=== PATIENT | female | born 1990 | race Caucasian/White ===

== ENCOUNTER → 2021-10-03 15:10 | Outpatient (CLI) | payer BC, SELFPAY ==
--- NOTE | ~2021-10-03 | US_ITS ---
EXAMINATION: US OB transvaginal DATE: 10/03/2021 15:39 INDICATION: Gestational dating TECHNIQUE: Real-time transvaginal obstetric ultrasound. FINDINGS: Ultrasound dated 07/22/2018 The uterus measures 9.2 x 5.1 x 5.6 cm. There is an intrauterine gestational sac, with pole inessa ntified. The crown rump length measures 0.78 cm, which correlates with a estimated gestational age o f 6 weeks 5 days. heart tones are identified measuring 126 BPM. There is a small subchorionic hemorrhage measuring 1.4 x 1.9 x 0.4 cm. The right ovary is not visualized. The left ovary is normal . IMPRESSION: 1. SL IUP with an EGA of 6 weeks, 5 days (EDC by current ultrasound of 05/24/2022). 2: Small subchorionic hemorrhage. Reviewed, dictated and finalized at location B. IMPRESSION: 1. SL IUP with an EGA of 6 weeks, 5 days (EDC by current ultrasound of 05/24/19 23). 2: Small subchorionic hemorrhage.
== END ==
PROVIDERS: PCP Family Medicine; Visit Provider Advanced Practice Midwife
DX: O36.80X0 Pregnancy with inconclusive fetal viability, not applicable or unspecified (principal); Z3A.01 Less than 8 weeks gestation of pregnancy; O36.8911 Maternal care for other specified fetal problems, first trimester, fetus 1
CPT/HCPCS: 76817

== ENCOUNTER → 2021-10-29 14:11 | Outpatient (CLI) | payer BC, SELFPAY ==
--- NOTE | ~2021-10-29 | US_ITS ---
US OB limited 10/29/2021 14:34 Indication: Subchorionic hematoma Procedure: High-resolution Limited obstetrical ultrasound Comparison: Ultrasound dated 10/03/2021 Findings: Uterus measures 12.6 x 6.3 x 7.6 cm. There is a subchorionic hematoma measuring 2.3 x 1.2 x 2.2 cm. There is a single intrauterine with the yolk sac and heart rate of 178 BPM. Impression: 1: Single living intrauterine . 2: Small subchorionic hematoma. Reviewed, dictated and finalized at location A. Impression: 1: Single living intrauterine . 2: Small subchorionic hematoma.
== END ==
PROVIDERS: PCP Obstetrics & Gynecology Gynecology; Visit Provider Obstetrics & Gynecology Gynecology
DX: O36.8911 Maternal care for other specified fetal problems, first trimester, fetus 1 (principal)
CPT/HCPCS: 76815

== ENCOUNTER → 2021-11-25 10:54 | Outpatient (CLI) | payer BC, SELFPAY ==
--- NOTE | ~2021-11-25 | US_ITS ---
US OB limited 11/25/2021 11:13 Indication: Follow-up subchorionic hematoma Procedure: High-resolution Limited obstetrical ultrasound Comparison: Ultrasound dated 10/29/2021 Findings: There is a single living intrauterine in variable presentation. Placenta is poste rior measuring 2 cm to the cervix. There is a anechoic area along the anterior border of the placenta , likely venous morales. Amniotic fluid is subjectively normal. heart rate is 162 BPM. No evidence for subchorionic hematoma. Impression: 1: Single living intrauterine in variable presentation. 2: Interval resolution of subchorionic hematoma. Reviewed, dictated and finalized at location A. Impression: 1: Single living intrauterine in variable presentation. 2: Interval resolution of subchorionic hematoma.
== END ==
PROVIDERS: PCP Obstetrics & Gynecology Gynecology; Visit Provider Obstetrics & Gynecology Gynecology
DX: O36.8910 Maternal care for other specified fetal problems, first trimester, not applicable or unspecified (principal)
CPT/HCPCS: 76815

== ENCOUNTER → 2021-12-24 10:39 | Outpatient (CLI) | payer BC, SELFPAY ==
--- NOTE | ~2021-12-24 | US_ITS ---
US OB limited 12/24/2021 11:28 Indication: Low lying placenta Procedure: High-resolution Limited obstetrical ultrasound Comparison: 11/25/2021 Findings: There is a single living intrauterine in vertex presentation. Placenta is posteri or measuring 6.3 cm to the cervix. heart rate is 148 BPM. Impression: 1: Single living intrauterine in vertex presentation. 2: Posterior placenta measuring 6.3 cm to the cervix. Reviewed, dictated and finalized at location A. Impression: 1: Single living intrauterine in vertex presentation. 2: Posterior placenta measuring 6.3 cm to the cervix.
== END ==
PROVIDERS: PCP Family Medicine; Visit Provider Obstetrics & Gynecology Gynecology
DX: O44.42 Low lying placenta NOS or without hemorrhage, second trimester (principal); Z3A.17 17 weeks gestation of pregnancy
CPT/HCPCS: 76815

== ENCOUNTER 2022-03-29 08:52 | Emergency (ER) | payer BC, SELFPAY ==
[2022-03-29 09:18] VITALS: BP 106/84; PULSE 123; RESP 18; TEMP 36.2; O2SAT 100
--- NOTE | 2022-03-29 09:29 | ED.URI ---
HPI - URI/Sore Throat General Chief Complaint: Upper Respiratory Infection Stated Complaint: Sinus,Sore Throat,Cough Time Seen by Provider: 03/29/22 09:29 Source: patient Mode of arrival: ambulatory Limitations: no limitations History of Present Illness HPI Narrative: 31 year old female presents with complaint of sinus congestion, nasal congestion, postnasal drainage for 2-3 weeks. Patient is taking Tylenol And Sudafed as needed pain and congestion.. She is 32 weeks and was unsure what medication she could take for congestion. Reports 2 days ago she began to have pressure to both ears, increased sinus pressure. Afebrile. No cough, chest pain or shortness breath. All systems reviewed and negative except as noted above. Related Data Home Medications Medication Instructions Recorded Confirmed etonogestrel 68 mg subdermal 1 implant subdermal ONCE 06/03/20 06/03/20 implant (Nexplanon) Allergies Allergy/AdvReac Type Severity Reaction Status Date / Time No Known Allergies Allergy Unverified 06/03/20 15:53 Review of Systems Review of Systems: CONSTITUTIONAL: Denies fever, chills, or sweats. EYES: Denies visual changes, redness, or discharge. ENT: Reports rhinorrhea, congestion,, sinus pressure, ear pressure. Denies sore throat CARDIOVASCULAR: Denies chest pain, palpitations, or edema. RESPIRATORY: Denies cough or dyspnea. GASTROINTESTINAL: Denies abdominal pain, nausea, vomiting, or diarrhea. GENITOURINARY: Denies dysuria or hematuria. SKIN: Denies rash or itching. MUSCULOSKELETAL: Denies back pain, joint pain, or myalgia. NEUROLOGIC: Denies headache, numbness, or weakness. PSYCHIATRIC: Denies anxiety or depression. All other systems reviewed are negative, except as documented in HPI. [facility] Family History Family History Mother Diabetes mellitus Social History Social History Smoking status: Never smoker Second hand tobacco smoke exposure: No Alcohol intake: never Substance use: never Substance use type: does not use Gender identity (if verbalized by the patient): Female Sexual Orientation (if Verbalized by the Patient): Straight or Heterosexual Comments At time of signature, agree with nursing past medical, surgical, social and family history. There is no relevant family history pertinent to the presenting complaint. Exam Narrative: GENERAL: This is a well-nourished, well-developed patient, in no apparent distress. HEAD: normocephalic, atraumatic. EYES: PERRL. Sclera clear/white. Vision is grossly intact. EARS: External ears normal, auditory canals clear and without drainage, fluid to myeloma TMs without erythema. NOSE: External nose normal with Clear nasal drainage, erythema and swelling to both nares with moderate congestion. Bilateral maxillary sinus tenderness. THROAT: Mucous membranes moist, Mild erythema to posterior pharynx with clear postnasal drainage. NECK: Neck supple, non-tender without lymphadenopathy, masses or thyromegaly. CARDIOVASCULAR: Regular rate and rhythm without murmurs, gallops, or rubs. RESPIRATORY: Clear to auscultation. Breath sounds equal bilaterally. No wheezes, rales, or rhonchi. SKIN: warm, Dry, intact with no suspicious lesions or rash, good texture and turgor. NEURO: awake, alert, and oriented to person, place and time. There were no obvious focal neurologic abnormalities. EXTREMITIES: No joint tenderness, effusion, or edema noted. Course Course Level of Care: Express Care Visit Vital Signs Vital signs: Vital Signs Temperature 36.2 C L 03/29/22 09:18 Pulse Rate 123 H 03/29/22 09:18 Respiratory Rate 18 03/29/22 09:18 Blood Pressure 106/84 03/29/22 09:18 Pulse Oximetry 100 03/29/22 09:18 Oxygen Delivery Room Air 03/29/22 09:18 Temperature 36.2 C L 03/29/22 09:18 Pulse Rate 123 H 03/29/22 09:18 Respiratory
[2022-03-29 09:30] VITALS: PULSE 110; O2SAT 100
== END 2022-03-29 09:41 | disposition home or self-care (01) ==
PROVIDERS: Emergency Provider Nurse Practitioner Family; PCP Family Medicine
DX: O99.513 Diseases of the respiratory system complicating pregnancy, third trimester (principal); Z3A.32 32 weeks gestation of pregnancy; J01.90 Acute sinusitis, unspecified
CPT/HCPCS: 99213; G0463

== ENCOUNTER 2022-05-15 00:01 | Observation (INO) | payer BC, SELFPAY ==
[2022-05-15 00:28] VITALS: BMI 45.1
--- NOTE | 2022-05-15 00:28 | LDADM ---
This patient, Leigh Mendez, was admitted to OB Post 117 on 05/15/22 at 00:01. Plans for labor, pain management and were discussed with patient. Patient/family oriented to hospital policies and general routines including ID bracelet, bed and alarms, visiting hours, pain management, procedures, bathroom and other care routines, personal items, smoking policy, room service/diet and guest tray routines, infant security routines, and visiting hours. Patient/Family are encouraged to report perceived risks to care and to ask questions if they do not understand what they are told or what they should do. See OBIX for further documentation.
[2022-05-15 00:50] VITALS: BP 118/80; PULSE 98; RESP 16; TEMP 36.6
[2022-05-15 01:00] LABS: Add Urine Microscopic? YES; Appearance Urine Clear (Clear); Bilirubin Urine Negative (Negative); Blood Urine Negative (Negative); Color Urine Yellow (Yellow); Glucose Urine UA Negative (Negative); Ketones Urine Trace mg/dL (Negative); Leukocyte Esterase Ur Negative LEU/UL (Negative); Nitrate Urine Negative (Negative); Protein Urine Trace mg/dL (Negative); Specific Grav Ur >= 1.030 (1.001-1.035)
[2022-05-15 01:03] VITALS: BP 123/95; PULSE 97
[2022-05-15 01:09] LABS: Alanine Aminotransferase 16 U/L (6-35); Albumin Level 3.3 g/dL (3.5-5.1); Alkaline Phosphatase 171 U/L (38-126); Anion Gap 5 mmol/L (8-16); Aspartate Amino Transferase 19 U/L (14-36); Bilirubin,Total 0.5 mg/dL (0.2-1.3); Blood Urea Nitrogen 9 mg/dL (7-17); Calcium 8.7 mg/dL (8.4-10.2); Carbon Dioxide 23 mmol/L (22-30); Chloride 109 mmol/L (98-107); Estimated CRCL calculation 121 ml/min; Estimated Glomerular Filt Rate > 60; Glucose 97 mg/dL (65-110); Potassium 3.7 mmol/L (3.4-5.0); Sodium 137 mmol/L (137-145); Uric Acid 3.8 mg/dL (2.5-7.5)
[2022-05-15 01:13] LABS: Bacteria Urine Trace /hpf; Calcium Oxalate Crystals Urine Present /hpf; Mucus Urine Few /lpf; Squamous Epithelial Cell Urine Many /hpf (Few)
[2022-05-15 01:16] VITALS: BP 111/87; PULSE 102
--- NOTE | 2022-05-25 09:03 | P.PNOB_ITS ---
OB - Triage/Final Diagnosis Visit Information Reason for evaluation: threatened labor and other ( edema) Comments/Additional reasons for admission: I have assessed the risk for this patient, Leigh Mendez, and determined that she would benefit from observation care. Evaluation Laboratory results: Laboratory Tests 05/15/22 05/15/22 00:42 00:42 Sodium 137 Potassium 3.7 Chloride 109 H Carbon Dioxide 23 Anion Gap 5 L BUN 9 Creatinine 0.70 Estim Creat Clear Calc 121 Estimated GFR > 60 Glucose 97 Uric Acid 3.8 Calcium 8.7 Total Bilirubin 0.5 AST 19 ALT 16 Alkaline Phosphatase 171 H Total Protein 6.0 L Albumin 3.3 L Urine Color Yellow Urine Appearance Clear Urine pH 6.0 Ur Specific [place] >= 1.030 Urine Protein Trace Urine Glucose (UA) Negative Urine Ketones Trace Ur Blood (Man) Negative Urine Nitrate Negative Urine Bilirubin Negative Urine Urobilinogen 2.0 H Leukocyte Esterase Rfl Negative Urine RBC 3-5 H Urine WBC 4-6 H Ur Squamous Epith Cells Many H Calcium Oxalate Crystal Present Urine Bacteria Trace Urine Mucus Few H
== END 2022-05-15 01:42 | disposition home or self-care (01) ==
PROVIDERS: Admitting Provider Obstetrics & Gynecology Gynecology; PCP Family Medicine; Referring Provider Advanced Practice Midwife; Visit Provider Obstetrics & Gynecology Gynecology
DX: O47.1 False labor at or after 37 completed weeks of gestation (principal); O12.03 Gestational edema, third trimester; Z3A.38 38 weeks gestation of pregnancy
CPT/HCPCS: 36415; 80053; 81001; 84550; G0378; G0379

== ENCOUNTER 2022-05-17 16:55 | Inpatient (IN) | payer BC, SELFPAY ==
[2022-05-17] VITALS (12 sets, daily range): BP systolic 113–129; BP diastolic 60–101; PULSE 79–104; TEMP 36.2; BMI 45.1
--- NOTE | 2022-05-17 16:55 | LDADM ---
This patient, Leigh Mendez, was admitted to Labor/Delivery/Recovery 107 on 05/17/22 at 16:55. Plans for labor, pain management and were discussed with patient. Patient/family oriented to hospital policies and general routines including ID bracelet, bed and alarms, visiting hours, pain management, procedures, bathroom and other care routines, personal items, smoking policy, room service/diet and guest tray routines, security routines, and visiting hours. Patient/Family are encouraged to report perceived risks to care and to ask questions if they do not understand what they are told or what they should do. See OBIX for further documentation.
[2022-05-17] MEDS: DINOPROSTONE 10 MG VAG INSERT VAGINAL (18:37)
[2022-05-17 18:39] LABS: Basophils Percent Auto 0.4 % (0.2-1.2); Eosinophils Absolute Auto 0.1 K/mm3 (0-0.3); Eosinophils Percent Auto 0.6 % (0-4.4); Hematocrit 37.7 % (37.0-47.0); Hemoglobin 12.4 g/dL (12.0-15.0); Immature Granulocyte Absolute 0.08 K/mm3 (0.00-0.031); Immature Granulocyte Percent A 0.8 % (0-0.5); Lymphocytes Absolute Auto 1.71 K/mm3 (0.9-3.2); Lymphocytes Percent Auto 17.5 % (18.3-44.2); Mean Corpuscular HGB Conc 32.9 g/dl (32-36); Mean Corpuscular Volume 88.1 fl (80-100); Monocytes Absolute Auto 0.7 K/mm3 (0.1-0.6); Monocytes Percent Auto 7.3 % (2.6-8.5); Neutrophils Absolute Auto 7.2 K/mm3 (1.3-6.7); Neutrophils Percent Auto 73.4 % (45.5-73.1); Platelet Count Result 199 k/mm3 (150-375); Red Blood Count 4.28 M/mm3 (4.2-5.4); Red Cell Distribution Width 13.2 % (11.5-14.5); White Blood Count 9.8 K/mm3 (4.5-10.0)
--- NOTE | 2022-05-17 19:05 | WPDANESEPP ---
Anes - Eval Pre Procedure Procedure: Labor epidural Date/Time: 05/17/22 19:05 Surgeon: Bryant Preop Diagnosis: Abd pain with contractions Pre Op Diagnosis: Induction of Labor Patient Data Age: 31 Gender: F Height: 1.57 m Weight: 112 kg Last Vital Signs Pulse 91 05/17/22 19:01 BP 124/69 05/17/22 19:01 O2 Del Method Room Air 05/17/22 17:53 Allergies Allergy/AdvReac Type Severity Reaction Status Date / Time No Known Allergies Allergy Unverified 06/03/20 15:53 Home Medications Medication Instructions Recorded Confirmed Type cholecalciferol (vitamin D3) 125 50,000 unit PO WEEKLY 04/23/22 04/23/22 History mcg (5,000 unit) tablet (Vitamin D3) vit no.95-ferrous 1 tablet PO DAILY 05/17/22 05/17/22 History fumarate 28 mg-folic acid 800 mcg tablet () Laboratory Tests 05/17/22 05/17/22 17:21 17:21 WBC 9.8 K/mm3 K/mm3 (4.5-10.0) RBC 4.28 M/mm3 M/mm3 (4.2-5.4) Hgb 12.4 g/dL g/dL (12.0-15.0) Hct 37.7 % % (37.0-47.0) MCV 88.1 fl fl (80-100) MCH 29.0 pg pg (26-34) MCHC 32.9 g/dl g/dl (32-36) RDW 13.2 % % (11.5-14.5) Plt Count 199 k/mm3 k/mm3 (150-375) MPV 12.0 fl H fl (7.4-10.4) Immature Gran % (Auto) 0.8 % H % (0-0.5) Neut % (Auto) 73.4 % H % (45.5-73.1) Lymph % (Auto) 17.5 % L % (18.3-44.2) Camp % (Auto) 7.3 % % (2.6-8.5) Eos % (Auto) 0.6 % % (0-4.4) Baso % (Auto) 0.4 % % (0.2-1.2) Lymph # (Auto) 1.71 K/mm3 K/mm3 (0.9-3.2) [place] # (Auto) 0.7 K/mm3 H K/mm3 (0.1-0.6) Eos # (Auto) 0.1 K/mm3 K/mm3 (0-0.3) Baso # (Auto) 0.0 K/mm3 K/mm3 (0.0-0.1) Abs Immat Gran (auto) 0.08 K/mm3 H K/mm3 (0.00-0.031) Absolute Neuts (auto) 7.2 K/mm3 H K/mm3 (1.3-6.7) Absolute Nucleated RBC 0.0 K/mm3 K/mm3 (0.0-0.012) Nucleated RBC % 0.0 % % (0.0-0.2) RPR Pending Patient hx anesthesia problems: none Family hx anesthesia problems: none Results Review: All pre-operative results and documents have been reviewed as part of the pre-operative evaluation. [facility] Past Medical History Medical History Anxiety Depression Migraines Morbid obesity Family History Family History Mother Diabetes mellitus Social History Social History Smoking status: Never smoker Second hand tobacco smoke exposure: No Alcohol intake: never Substance use: never Substance use type: does not use Lack of Transportation: No Lack of Food: Never True Current Housing: I Have Housing Concerned About Future Housing: No Difficulty Paying Gas/Electric Bills: No Difficulty Paying for Meds: No Currently Unemployed: No Education: Associate Degree Difficulty w/ Childcare or Family Care: No Gender identity (if verbalized by the patient): Female Sexual Orientation (if Verbalized by the Patient): Straight or Heterosexual Spiritual care concerns: No Exam Day of Procedure 05/17/22 19:05 Patient weight: morbidly obese Airway: Mallampati scale class II
[2022-05-18] VITALS (197 sets, daily range): BP systolic 75–141; BP diastolic 21–109; PULSE 27–296; RESP 18; TEMP 35.9–37.1; O2SAT 87–100
--- NOTE | 2022-05-18 07:31 | WPDOBADMIT ---
Obstetrics - Admit Note Admission Note: record reviewed. No pertinent additions to the history and/or any subsequent changes in the physical findings that are not consistent with the expected course of the were found. Additions to the history and/or subsequent changes in the physical findings follow. None.
--- NOTE | 2022-05-18 07:49 | PM.OBPNLAB ---
Pain Control Date/time seen: 05/18/22 07:30 Pain control: tolerating well Comments: Feeling occasional mild cramping. Pelvic Exam Dilation (cm): 2 (2.5) Effacement (%): 60 station: -3 Amniotic membrane status: Intact Contractions Monitor mode: External Contraction frequency: 3 Contraction pattern: Irregular Contraction intensity: Mild Status status: Category l Assessment and Plan Assessment: induction ongoing Comments: CNM to bedside. Discussed plan of care. SVE 2/60/-3 with head well applied to cervix. Discussed option of oxytocin vs amniotomy. Pt desires amniotomy and desires intermittent monitoring. AROM performed with return of moderate amount of clear fluid. SVE then 2.5/60/-3 with head well applied to cervix. If contractions are more painful and consistent in 2 hours will continue with expectant management. If contractions have not intensified at that time, plan to start oxytocin augmentation. Spouse present and supportive.
[2022-05-18 08:06] LABS: Rapid Plasma Reagin Non-Reactive (NonReactive)
[2022-05-18] MEDS: FAMOTIDINE 20 MG/2 ML VIAL IV PUSH (10:41)
[2022-05-18] MEDS: OXYTOCIN 30 UNITS/NS 500 ML 30 UNITS/500 ML BAG IV CONT (12:45)
[2022-05-18] MEDS: LACTATED RINGERS 1,000 ML 125 ML IV CONT (12:45)
[2022-05-18] MEDS: OXYTOCIN 30 UNITS/NS 500 ML 30 UNITS/500 ML BAG 125 UNITS IV CONT (19:54)
--- NOTE | 2022-05-18 19:58 | P.PCNOB_ITS ---
OB - Delivery Note Procedure Delivery date: 05/18/22 Procedure: Events: Elective Induction of Labor and Macrosomia (LGA) Induction method: Per Cervidil Protocol Delivery augmentation: Rupture of Membranes and Pitocin Delivery monitor: External FHT, External Uterine and Internal Uterine Route of delivery: Episiotomy description: None Laceration Description: Vaginal (2nd degree) Delivery repair: vicryl Specimen: No Quantitative Blood Loss (ml): 150 Anesthesia type: Epidural Disposition: Floor Narrative: Pt pushed with contractions and slowly brought the head to a crown. She slowly delivered the head with one push. There was minimal restitution and a loose nuchal cord was identified. The anterior shoulder delivered easily with the next push followed by the posterior shoulder and the remainder of the infant. The infant was placed on the maternal abdomen and was dried and stimulated by nursery staff. After 2 minutes of life, the cord was doubly clamped and cut. Cord blood and gasses were obtained. The placenta delivered spontaneously in [place] presentation. A 2nd degree vaginal laceration was repaired in the usual fashion. All delivery counts were correct and the was skin to skin with the mother in the delivery room. [place] Baby Date of : 05/18/22 Time of : 19:28 Weeks of gestation at delivery: 39 gender: Male Weight (pounds): 8 Weight (ounces): 7 presentation: vertex position: Right Occiput Anterior Placenta delivery description: Spontaneous Cord Vessel Description: 3 Vessels, Nuchal Cord, Loose, Clamped/Cut and Delayed Cord Clamping score one minute: 8 score five minutes: 9
--- NOTE | 2022-05-18 20:07 | PM.OBDSVD ---
DS: Admitting Diagnosis Discharge Date 05/20/21 Admitting Diagnosis 31y.o. at 39 weeks. LGA Rubella Non-Immune Anxiety/Depression DS: Discharge Diagnosis Discharge Diagnosis (1) Anxiety: Code(s): F41.9 - Anxiety disorder, unspecified Status: Acute (2) (normal spontaneous vaginal delivery): Code(s): O80 - Encounter for full-term uncomplicated delivery Status: Acute (3) Rubella non-immune status, delivered, current hospitalization: Code(s): O99.892 - Other specified diseases and conditions complicating childbirth; Z28.39 - Other underimmunization status Status: Acute (4) Depression: Code(s): F32.A - Depression, unspecified Status: Acute OB - DS: Summary Hospital Course Hospital Course: Uncomplicated OB Procedures : Ultrasound OB Procedures Intrapartum: Spontaneous Vag Delivery OB Procedures: : Rubella lg Peripartum Data Infant Delivery Method: Natural Vaginal Laceration Description: Vaginal - 2nd Degree Episiotomy description: None complications: none Status at Discharge Overall status at discharge: patient is progressing back to baseline Time Spent with Patient Time attestation: Total time spent providing and/or coordinating discharge services: Exam Narrative: Alert and oriented. Mood is pleasant and cooperative. Urinating without difficulty. Denies passing any large clots. Perineum with minimal edema. Fundus firm and below umbilicus. Const: General: cooperative, healthy appearing, no acute distress and alert Orientation/consciousness: patient oriented x3 Limitations: no limitations Resp: Effort & Inspection: normal respiratory effort Auscultation: clear to auscultation bilaterally Cardio: Rate: regular rate GI: Inspection: normal to inspection Neuro: General: patient oriented x3 Extrem: General: normal to inspection Psych: Appearance: grossly normal Mental Status: mental status grossly normal Affect: normal affect Thought process: Normal thought process present DS: Data Data Completed and Pending Labs on day of discharge: Labs from last 24 hours 05/17/22 17:21 RPR Non-reactive Discharge Plan Discharge Attending physician on discharge: Sandy Hurtado Discharging Clinician: Pamela Nur Anticipated Discharge Date/Time: 05/19/22 17:45 Patient Disposition: Home, Self-Care Activity: may shower Diet: as tolerated and regular Discharge Instructions: Continue taking your vitamin and any other supplements as previously directed (Examples: Iron, Vitamin D). You may take Tylenol 1000mg over the counter every 6 hours as needed for pain. Do not exceed 4000mg of Tylenol daily. You may continue using tucks pads and dermoplast spray if needed for a few more days. Patient Instructions: Antibiotic Form Stand Alone Forms: General Discharge Information Follow-up/Referrals: Pamela Nur CNM [Certified Nurse Food Service Aide] - (6 week Post visit) Discharge Medications: New docusate sodium 100 mg Capsule 100 mg PO BID PRN (Reason: Constipation) 14 Days Qty: 28 0RF ibuprofen 600 mg Tablet 600 mg PO Q6H PRN (Reason: Cramping) 14 Days Qty: 30 0RF Continued cholecalciferol (vitamin D3) [Vitamin D3] 125 mcg (5,000 unit) Tablet 50,000 unit PO WEEKLY PNV cmb#95-ferrous fumarate-FA [] 28 mg iron- 800 mcg Tablet 1 tablet PO DAILY Date of admission: 05/17/22 16:55 Primary Care Provider: Monroe Sarmiento Admitting Provider: Sandy Hurtado Attending physician on admission: Sandy Hurtado Condition: Stable
[2022-05-18] MEDS: BENZOCAINE 20% AER SPR (*SP) 56 GM CAN 1 SPRAY TOPICAL (22:17)
[2022-05-18] MEDS: WITCH HAZEL 40 PADS 1 PAD TOPICAL (22:18)
--- NOTE | 2022-05-18 22:26 | OBPPTRN ---
Patient transferred to post room #280 via ( wheelchair ). Support person present. Oriented to unit, room, information board, rooming in, admission packet and security measures. Patient verbalizes understanding.
[2022-05-18] MEDS: IBUPROFEN 600 MG TABLET PO (22:55)
[2022-05-19 04:00] VITALS: BP 114/68; PULSE 78; RESP 18; TEMP 36.6; O2SAT 98
[2022-05-19 04:46] LABS: Hematocrit 31.5 % (37.0-47.0); Hemoglobin 10.3 g/dL (12.0-15.0)
[2022-05-19] MEDS: DOCUSATE SODIUM 100 MG CAPSULE PO ×2 (07:20→16:23)
[2022-05-19] MEDS: IBUPROFEN 600 MG TABLET PO (07:21)
[2022-05-19 07:25] VITALS: BP 123/81; PULSE 79; RESP 18; TEMP 36.6; O2SAT 99
--- NOTE | 2022-05-19 07:53 | P.PNOB_ITS ---
OB - PN: Subj Subjective Date/time seen: 05/19/22 07:30 Patient comments: no complaints and pain well controlled baby status: doing well [place] feeding status: breast and bottle feeding Narrative: Sitting up in bed. Desires DC at 24 hours. OB - PN: Obj Data Labs 05/19/22 03:59 Labs: Laboratory Results - last 24 hr 05/17/22 05/19/22 17:21 03:59 Hgb 10.3 L Hct 31.5 L RPR Non-reactive OB - PN A/P Plan day: 1 Plan: discharge home Time Spent With Patient Time: Total time spent is greater than 50% in coordination of care (as documented) at patient's floor/unit and/or counseling patient: Review of Systems Review of Systems: All systems reviewed & are unremarkable except as noted in HPI and below Exam Narrative: Alert and oriented. Mood is pleasant and cooperative. Urinating without difficulty. Denies passing any large clots. Perineum with minimal edema. Fundus firm and below umbilicus. Const: General: cooperative, healthy appearing, no acute distress and alert Orientation/consciousness: patient oriented x3 Limitations: no limitations Resp: Effort & Inspection: normal respiratory effort Auscultation: clear to auscultation bilaterally Cardio: Rate: regular rate GI: Inspection: normal to inspection Neuro: General: patient oriented x3 Extrem: General: normal to inspection Psych: Appearance: grossly normal Mental Status: mental status grossly normal Affect: normal affect Thought process: Normal thought process present
--- NOTE | 2022-05-19 07:55 | WPDANLDPN2 ---
Anes-Prog Note L&D Date/Time: 05/19/22 07:55 Comfortable throughout: labor and delivery Neuraxial method: epidural Epidural/Spinal procedure site: clean & non-tender Neuro status: Neuro function grossly intact. Cardiovascular status: normal Respiratory status: normal Airway patency: baseline Mental status: baseline Post-Op hydration status: normal Vital Signs: Last Vital Signs Temp 36.6 C 05/19/22 07:25 Pulse 79 05/19/22 07:25 Resp 18 05/19/22 07:25 BP 123/81 05/19/22 07:25 Pulse Ox 99 05/19/22 07:25 O2 Del Method Room Air 05/17/22 17:53 Pain score (VAS): 05/26 I/O: Intake & Output 05/18/22 05/18/22 05/19/22 15:59 23:59 07:59 Intake Total 1000 Output Total 280 Balance 720 Post-procedural complaints: none Patient feedback: Patient satisfied with anesthetic care.
[2022-05-19 11:44] VITALS: BP 98/56; PULSE 91; RESP 16; TEMP 36.4; O2SAT 98
--- NOTE | 2022-05-19 13:19 | PC.NURSE ---
0938 - Checked in to consult with patient and she is sleeping at this time.
[2022-05-19 16:15] VITALS: BP 121/79; PULSE 92; RESP 16; TEMP 36.5; O2SAT 99
[2022-05-19] MEDS: ACETAMINOPHEN 325 MG TABLET 650 MG PO (16:23)
[2022-05-19 19:15] VITALS: BP 117/79; PULSE 75; RESP 18; TEMP 36.8
[2022-05-19] MEDS: MEASLES,MUMPS,RUBELLA VACCINE 0.5 ML VIAL SUB-Q (19:56)
--- NOTE | 2022-05-19 20:00 | PC.NURSE ---
Patient viewed the discharge video Mother & Baby Care, The First Two Weeks . Patient was given the opportunity and encouraged to ask questions. Patient verbalized understanding of information shared and has been given the mother/baby guide for home reference.
[2022-05-21 11:21] VITALS: BP 132/83; PULSE 98; RESP 20; TEMP 36.7; O2SAT 99
== END 2022-05-19 20:16 | disposition home or self-care (01) | DRG 807 ==
LOC: ANHLDR 05-18 20:12 → ANHOB2 05-18 23:09
PROVIDERS: Advanced Practice Midwife; Admitting Provider Obstetrics & Gynecology Gynecology; PCP Family Medicine; Visit Provider Obstetrics & Gynecology Gynecology
DX: O36.63X0 Maternal care for excessive fetal growth, third trimester, not applicable or unspecified (principal); Z37.0 Single live birth; Z3A.39 39 weeks gestation of pregnancy; O69.81X0 Labor and delivery complicated by cord around neck, without compression, not applicable or unspecified; O70.1 Second degree perineal laceration during delivery
CPT/HCPCS: 36415; 85014; 85018; 85025; 86592; 86850; 86900; 86901; 90710; A9270; J2590; J2795; J7120

== ENCOUNTER 2022-06-13 06:10 | Observation (INO) | payer BC, SELFPAY ==
[2022-06-13] VITALS (15 sets, daily range): BP systolic 95–144; BP diastolic 59–88; PULSE 53–91; RESP 12–29; TEMP 36.2–36.7; O2SAT 99–100; BMI 42.0
--- NOTE | ~2022-06-13 | US_ITS ---
US abdomen limited INDICATION: Abdomen pain PROCEDURE: Realtime right upper abdominal ultrasound. COMPARISON: No prior studies for comparison. FINDINGS: The pancreas is normal without focal mass or pancreatic ductal dilation. Liver echotexture is normal without focal mass or intrahepatic biliary dilatation. There is normal directional flow i n the portal vein. There are gallstones near the gallbladder neck. Common bile duct measures 4 mm. No sonographic Murp hy's sign. IMPRESSION: 1: Cholelithiasis. Reviewed, dictated and finalized at location A. HYSICAL PROSPECTOR IMPRESSION: 1: Cholelithiasis.
--- NOTE | ~2022-06-13 | MR_ITS ---
EXAMINATION: MR MRCP wo/w con/w 3D wo ind DATE: 06/13/2022 14:22 INDICATION: Gallbladder disease. Abdominal pain. TECHNIQUE: Magnetic resonance imaging (MRI) of the abdomen was performed without and with 20 mL Multi Jayshree intravenous contrast. Sequences included coronal T2-weighted FS FSE, coronal T2-weighted FSE, a xial T1-weighted LAVA, coronal FS FIESTA, axial dual-echo T1-weighted SPGR, coronal lava-FLEX, sagitt al T2-weighted FSE, axial T2-weighted FSE, and axial DWI. Thick-slab T2-weighted FSE images were obta ined for magnetic resonance cholangiopancreatography (MRCP). Maximum intensity projection 3-D reconst ructions of the volumetric data were created by the technologist. Postcontrast sequences included cor onal LAVA-flex and time course of axial T1-weighted LAVA. COMPARISON: CT abdomen and pelvis 06/13/2022 FINDINGS: ABDOMEN MRI: There is diffuse hepatic steatosis. There are gallstones in the gallbladder, which is no rmal in size. There is mild splenomegaly measuring 14.5 cm, which may be secondary to obesity. There is fat stranding around the pancreas, consistent with acute interstitial pancreatitis. The adrenal gl ands and kidneys are normal. There are no dilated loops of bowel. There are no pathologically enlarge d lymph nodes. There is no free intraperitoneal fluid. ABDOMEN MRCP: The common duct is normal and measures 4 mm. No choledocholithiasis. IMPRESSION: 1. Acute interstitial pancreatitis. 2. Cholelithiasis. No evidence of acute cholecystitis. 3. No choledocholithiasis. Reviewed, dictated and finalized at location A. LOADER
--- NOTE | ~2022-06-13 | XR_ITS ---
EXAMINATION: XR chest 1V portable 06/13/2022 07:22 INDICATION: Cough. Shortness of breath. PROCEDURE: AP portable chest COMPARISON: No prior studies for comparison. FINDINGS: The lungs are clear. The cardiomediastinal silhouette is within normal limits. There are no pleural effusions. There is no pneumothorax suspected. IMPRESSION: 1: NO ACUTE CARDIOPULMONARY DISEASE. Reviewed, dictated and finalized at location A. T LINE LEADER
--- NOTE | ~2022-06-13 | CT_ITS ---
EXAMINATION: CT abdomen pelvis w con DATE: 06/13/2022 09:37 INDICATION: Nausea and abdominal pain. TECHNIQUE: Computed tomography (CT) of the abdomen and pelvis was performed with 100 cc Omnipaque 350 intravenous contrast. The dose-length product was 1367.56 mGy-cm. Automated exposure control and ite rative reconstruction technique were employed. COMPARISON: Ultrasound dated 06/13/2022. FINDINGS: Lung bases are unremarkable. Heart size normal. No significant vascular abnormality. No lym phadenopathy. Small fat-containing umbilical hernia. Nonobstructive bowel pattern. Fatty infiltration of the liver. The spleen is enlarged. Gallbladder is present. No radiopaque stones are seen. The pancreas, adrenal glands and kidneys are unremarkable. No hydronephrosis. Nonobstructi ve bowel gas pattern. No abnormal pelvic masses or fluid collections. No acute osseous abnormality. T here is grade 1 spondylolisthesis at L5-S1 secondary to spondylolysis. IMPRESSION: 1. No acute abdominal abnormality. 2: Splenomegaly. 3: Hepatic steatosis. Reviewed, dictated and finalized at location A. EYOR INSTALLER
--- NOTE | 2022-06-13 06:56 | ECG_ITS ---
Measurements Intervals [place] Rate: 87 P: 37 VT: 143 QRS: 19 QRSD: 87 T: 14 QT: 362 QTc: 436 Interpretive Statements SINUS RHYTHM BASELINE ARTIFACT- I, II, III, AVR, AVL, AVF NO SIGNIFICANT CHANGES NO PREVIOUS ECG AVAILABLE FOR COMPARISON Electronically Signed On 06-13-2022 8:01:57 [employer] by Casey Baeza D.O.
--- NOTE | 2022-06-13 07:15 | PC.NURSE ---
Report given to PATI Levine at this time.
--- NOTE | 2022-06-13 07:28 | ED.GENADULT ---
HPI - General Adult General Chief complaint: Shortness of Breath/Dyspnea Stated complaint: Sob, UQ pain, baby 3 weeks ago Time Seen by Provider: 06/13/22 07:01 Source: RN notes reviewed History of Present Illness HPI narrative: Patient presents emergency department from home for shortness of breath. Patient states symptoms began last night. States she began to feel short of breath that was associated with abdominal pain across the upper abdomen. Patient states that abdominal pain is described as sharp and stabbing and goes across the upper abdomen she states that she had felt constipated and did take a stool softener with some relief she denies any cough she denies any fevers or chills chest pain nausea vomiting diarrhea or any other symptoms. States she did not take any other medication for the symptoms. States she is approximately 3 weeks with a vaginal delivery with no complications Related Data Home Medications Medication Instructions Recorded Confirmed cholecalciferol (vitamin D3) 125 50,000 unit PO WEEKLY 04/23/22 04/23/22 mcg (5,000 unit) tablet (Vitamin D3) vit no.95-ferrous 1 tablet PO DAILY 05/17/22 05/17/22 fumarate 28 mg-folic acid 800 mcg tablet () Allergies Allergy/AdvReac Type Severity Reaction Status Date / Time No Known Allergies Allergy Verified 06/13/22 06:25 Review of Systems Review of Systems: Gen.: Denies fevers or chills ENT: Denies congestion Respiratory: Reports shortness of breath denies cough CV: Denies chest pain or palpitations GI: Reports upper abdominal pain denies nausea, emesis or diarrhea Musculoskeletal: Denies back pain or muscle pain Neuro: Denies numbness, tingling, weakness or focal weakness Skin: Denies rash Except as documented, all other systems reviewed and negative [facility] Past Medical History Medical History Anxiety Depression Migraines Morbid obesity Family History Family History Mother Diabetes mellitus Social History Social History Smoking status: Never smoker Second hand tobacco smoke exposure: No Alcohol intake: never Substance use: never Substance use type: does not use Lack of Transportation: No Lack of Food: Never True Current Housing: I Have Housing Concerned About Future Housing: No Difficulty Paying Gas/Electric Bills: No Difficulty Paying for Meds: No Currently Unemployed: No Education: Associate Degree Difficulty w/ Childcare or Family Care: No Living arrangements: with family Occupation/Education: occupation Gender identity (if verbalized by the patient): Female Sexual Orientation (if Verbalized by the Patient): Straight or Heterosexual Spiritual care concerns: No Exam Narrative: APPEARANCE: No acute distress, nontoxic, resting in bed EYES: EOMI HEENT: Normocephalic, atraumatic, OMM RESPIRATORY: No respiratory distress Clear to auscultation bilaterally with no rhonchi wheezing or rales. CARDIOVASCULAR: Regular rate and rhythm without murmurs rubs or gallops. ABDOMINAL: Soft, nondistended tender to palpation epigastric, right upper quadrant and left upper quadrant no tenderness in the right lower quadrant left lower quadrant no rebound or guarding MUSCULOSKELETAl: Moves all extremities. No clubbing, cyanosis or edema. NEURO: Awake and alert. Following commands, speech normal, no focal deficits SKIN:: Warm, dry. No rashes lesions or abrasions PSYCHIATRIC: Normal affect/mood, Course Course Emergency Course: Called discussed with Dr. Lockett for GI agrees with consult request consult with general surgery Discussed with Dr. Polanco for general surgery agrees with consult recommends no antibiotics at this time Discussed with Dr. Grande for [employer] at this time as the patient has no acute [employer]
[2022-06-13 07:45] LABS: Basophils Absolute Auto 0.1 K/mm3 (0.0-0.1); Basophils Percent Auto 0.7 % (0.2-1.2); Eosinophils Absolute Auto 0.2 K/mm3 (0-0.3); Eosinophils Percent Auto 3.1 % (0-4.4); Hematocrit 39.1 % (37.0-47.0); Hemoglobin 12.6 g/dL (12.0-15.0); Immature Granulocyte Absolute 0.05 K/mm3 (0.00-0.031); Immature Granulocyte Percent A 0.7 % (0-0.5); Lymphocytes Absolute Auto 1.65 K/mm3 (0.9-3.2); Lymphocytes Percent Auto 23.4 % (18.3-44.2); Mean Corpuscular HGB Conc 32.2 g/dl (32-36); Mean Corpuscular Hemoglobin 27.9 pg (26-34); Mean Corpuscular Volume 86.7 fl (80-100); Mean Platelet Volume 9.8 fl (7.4-10.4); Monocytes Absolute Auto 0.5 K/mm3 (0.1-0.6); Monocytes Percent Auto 6.5 % (2.6-8.5); Neutrophils Absolute Auto 4.6 K/mm3 (1.3-6.7); Neutrophils Percent Auto 65.6 % (45.5-73.1); Platelet Count Result 298 k/mm3 (150-375); Red Blood Count 4.51 M/mm3 (4.2-5.4); Red Cell Distribution Width 12.5 % (11.5-14.5)
[2022-06-13 08:08] LABS: Alanine Aminotransferase 129 U/L (6-35); Albumin Level 3.9 g/dL (3.5-5.1); Alkaline Phosphatase 148 U/L (38-126); Anion Gap 3 mmol/L (8-16); Aspartate Amino Transferase 107 U/L (14-36); Blood Urea Nitrogen 14 mg/dL (7-17); Calcium 8.5 mg/dL (8.4-10.2); Carbon Dioxide 30 mmol/L (22-30); Chloride 101 mmol/L (98-107); Estimated CRCL calculation 104 ml/min; Estimated Glomerular Filt Rate > 60; Glucose 91 mg/dL (65-110); Potassium 3.9 mmol/L (3.4-5.0); Sodium 134 mmol/L (137-145)
[2022-06-13 08:18] LABS: Troponin I < 0.012 ng/mL (0.000-0.034)
[2022-06-13 08:30] LABS: Prothrombin Time 12.6 Seconds (11.1-14.7)
[2022-06-13] MEDS: SODIUM CHLORIDE 0.9% IV 1,000 ML 999 ML IV CONT ×2 (08:50→10:40)
[2022-06-13 08:58] LABS: Lipase 4153 U/L (23-300)
[2022-06-13 09:28] LABS: Appearance Urine Clear (Clear); Bilirubin Urine Negative (Negative); Blood Urine Negative (Negative); Color Urine Yellow (Yellow); Glucose Urine UA Negative (Negative); Ketones Urine Negative (Negative); Leukocyte Esterase Ur Negative LEU/UL (Negative); Nitrate Urine Negative (Negative); Protein Urine Negative (Negative); Specific Grav Ur 1.015 (1.001-1.035); Urobilinogen Urine 0.2 mg/dL (<2.0); pH Urine 7.5 (5.0-9.0)
[2022-06-13 09:30] LABS: Influenza A QL RT-PCR Negative (Negative); Influenza B QL RT-PCR Negative (Negative); SARS-CoV-2 RNA PCR Negative
[2022-06-13 09:47] LABS: Add Urine Microscopic? NO
--- NOTE | 2022-06-13 10:20 | PM.IMHP ---
H&P: HPI History of Present Illness Date/Time: 06/13/22 10:20 Chief Complaint: abdominal pain Narrative: 31-year-old female who is 3 weeks from a spontaneous vaginal delivery of a full-term baby without any complications is presenting with several attacks of abdominal pain. She states over the last few days she has had intermittent episodes of severe sharp epigastric pain that has her doubling over. She denies associated nausea, vomiting or diarrhea. No fevers or chills. No chest pain or shortness of breath. It does not appear to be worse with certain positions. Food seems to make it worse. She did notice difficulty taking a deep breath secondary to abdominal pain but denied any wheezing or coughing. Shortly after arrival to the ER, patient's symptoms resolved. MRCP was performed that showed stones in the bile duct with interstitial pancreatitis but no choledocholithiasis. General surgery was consulted and is planning cholecystectomy. GI was consulted and recommended surgical intervention as opposed to ERCP as there was no choledocholithiasis. Patient did have elevated LFTs and a lipase of 4000 that came down to 2000 shortly after. Review of Systems Review of Systems: 12 point review of systems was assessed and was negative except as noted in the HPI PMFSH Past Medical History Medical History Anxiety Depression Elevated liver enzymes Migraines Morbid obesity Upper abdominal pain Family History Family History Mother Diabetes mellitus Father Prediabetes Hypercholesterolemia Social History Social History Smoking status: Never smoker Second hand tobacco smoke exposure: No Alcohol intake: never Substance use: never Substance use type: does not use Lack of Transportation: No Lack of Food: Never True Current Housing: I Have Housing Concerned About Future Housing: No Difficulty Paying Gas/Electric Bills: No Difficulty Paying for Meds: No Currently Unemployed: No Education: Associate Degree Difficulty w/ Childcare or Family Care: No Living arrangements: with family Occupation/Education: occupation Gender identity (if verbalized by the patient): Female Sexual Orientation (if Verbalized by the Patient): Straight or Heterosexual Spiritual care concerns: No Meds Home Medications and Allergies Home Medications Medication Instructions Recorded Confirmed Type cholecalciferol (vitamin D3) 125 50,000 unit PO WEEKLY 04/23/22 06/13/22 History mcg (5,000 unit) tablet (Vitamin D3) vit no.95-ferrous 1 tablet PO DAILY 05/17/22 06/13/22 History fumarate 28 mg-folic acid 800 mcg tablet () Allergies Allergy/AdvReac Type Severity Reaction Status Date / Time No Known Allergies Allergy Verified 06/13/22 12:40 Vital Signs Vital Signs - 24 hr 06/13/22 06:20 06/13/22 06:26 06/13/22 06:31 Temperature 98.0 F Pulse Rate 86 73 Respiratory Rate 16 18 Blood Pressure 144/88 H Pulse Oximetry 100 Oxygen Delivery Room Air 06/13/22 06:25 06/13/22 06:26 06/13/22 06:30 Temperature Pulse Rate 74 85 74 Respiratory Rate 21 H 24 H 29 H Blood Pressure 124/80 Pulse Oximetry Oxygen Delivery 06/13/22 06:31 06/13/22 07:00 06/13/22 07:01 Temperature Pulse Rate 85 81 91 Respiratory Rate 17 17 23 H Blood Pressure 117/75 95/73 L Pulse Oximetry Oxygen Delivery 06/13/22 07:20 06/13/22 07:30 06/13/22 07:48 Temperature Pulse Rate 83 81 88 Respiratory Rate 17 22 H Blood Pressure Pulse Oximetry Oxygen Delivery 06/13/22 08:30 06/13/22 08:45 06/13/22 09:00 Temperature Pulse Rate 82 78 66 Respiratory Rate 18 20 12 Blood Pressure Pulse Oximetry Oxygen Delivery Exam Narrative: General: No acu
[2022-06-13] MEDS: FAMOTIDINE 20 MG/2 ML VIAL IV PUSH (10:40)
[2022-06-13 11:17] LABS: Troponin I < 0.012 ng/mL (0.000-0.034)
--- NOTE | 2022-06-13 12:19 | PM.CNGS ---
Assessment and Plan Assessment and plan (1) Acute biliary pancreatitis: Code(s): K85.10 - Biliary acute pancreatitis without necrosis or infection Status: Acute Assessment and Plan: admit, clears for now, serial exams, labs, may need MRCP, await GI input, will eventually need interval cholecystectomy History of Present Illness Consult details Consult date: 06/13/22 Reason for consult: gallstones Requesting physician: Keli Boone DO Narrative: The patient is a 31-year-old female presenting to the emergency department complaining of severe upper abdominal pain. The patient reports this pain is associated with bloating, nausea, poor appetite. Of note the patient is recently . Workup in the emergency department, including imaging, is significant for acute biliary pancreatitis. Review of Systems Constitutional: Constitutional: Reports as per HPI, Reports anorexia, Denies chills, Reports fatigue, Denies fever(s), Reports lethargy, Reports malaise, Reports poor appetite, Reports weakness, Denies weight gain and Denies weight loss Eyes: Eyes: Reports no additional eye complaints ENT: Reports system reviewed and no additional complaints, except as documented Cardiovascular: Cardiovascular: Reports no additional cardiovascular complaints Respiratory: Respiratory: Reports no additional respiratory complaints Gastrointestinal: Gastrointestinal: Reports as per HPI, Reports abdominal pain, Reports bloating, Reports GI cramping, Reports early satiety, Reports heartburn, Denies diarrhea, Reports nausea and Denies vomiting Genitourinary: Genitourinary: Reports no additional female genitourinary complaints Musculoskeletal: Musculoskeletal: Reports no additional musculoskeletal complaints Integumentary/Breasts: Skin/Breast: Reports system reviewed and no additional complaints, except as docu Neurologic: Reports system reviewed and no additional complaints, except as documented Psychiatric: Psychiatric: Reports no additional psychiatric complaints Endocrine: Endocrine: Reports no additional endocrine complaints Hematologic/Lymphatic: Hematologic/Lymphatic: Reports no additional hematologic/lymphatic complaints Allergic/Immunologic: Allergic/Immunologic: Reports no additional allergic/immunologic complaints PMFSH Past Medical History Medical History Anxiety Depression Migraines Morbid obesity Family History Family History Mother Diabetes mellitus Social History Social History Smoking status: Never smoker Second hand tobacco smoke exposure: No Alcohol intake: never Substance use: never Substance use type: does not use Lack of Transportation: No Lack of Food: Never True Current Housing: I Have Housing Concerned About Future Housing: No Difficulty Paying Gas/Electric Bills: No Difficulty Paying for Meds: No Currently Unemployed: No Education: Associate Degree Difficulty w/ Childcare or Family Care: No Living arrangements: with family Occupation/Education: occupation Gender identity (if verbalized by the patient): Female Sexual Orientation (if Verbalized by the Patient): Straight or Heterosexual Spiritual care concerns: No Meds Home Medications and Allergies Home Medications Medication Instructions Recorded Confirmed Type cholecalciferol (vitamin D3) 125 50,000 unit PO WEEKLY 04/23/22 04/23/22 History mcg (5,000 unit) tablet (Vitamin D3) vit no.95-ferrous 1 tablet PO DAILY 05/17/22 05/17/22 History fumarate 28 mg-folic acid 800 mcg tablet () docusate sodium 100 mg capsule 100 mg PO BID PRN Constipation 14 05/19/22 Rx days #28 caps ibuprofen 600 mg tablet 600 mg PO Q6H PRN Cramping 14 days 05/19/22 Rx #30 tabs Allergies Allergy/Adv
[2022-06-13] MEDS: SODIUM CHLORIDE 0.9% IV 1,000 ML 150 ML IV CONT ×2 (12:35→21:20)
--- NOTE | 2022-06-13 12:47 | ADMGEN ---
This patient, Leigh Mendez, was admitted to 2 Medical Room 251-01. Patient/family oriented to hospital policies and general routines including ID bracelet, bed and alarms, visiting hours, pain management, procedures, bathroom and other care routines, personal items, smoking policy, room service/diet, and visiting hours. Information on how to activate the Rapid Response Team has been discussed. Patient/Family are encouraged to report perceived risks to care and to ask questions if they do not understand what they are told or what they should do.
[2022-06-13 15:17] LABS: Alanine Aminotransferase 157 U/L (6-35); Albumin Level 3.6 g/dL (3.5-5.1); Alkaline Phosphatase 167 U/L (38-126); Anion Gap 6 mmol/L (8-16); Aspartate Amino Transferase 112 U/L (14-36); Bilirubin,Total 0.8 mg/dL (0.2-1.3); Blood Urea Nitrogen 10 mg/dL (7-17); Calcium 8.3 mg/dL (8.4-10.2); Carbon Dioxide 22 mmol/L (22-30); Chloride 110 mmol/L (98-107); Estimated CRCL calculation 133 ml/min; Estimated Glomerular Filt Rate > 60; Glucose 80 mg/dL (65-110); Sodium 138 mmol/L (137-145)
[2022-06-13 15:21] LABS: Troponin I < 0.012 ng/mL (0.000-0.034)
[2022-06-13 15:31] LABS: Lipase 2661 U/L (23-300)
--- NOTE | 2022-06-13 16:31 | WPDGICN ---
Assessment and Plan Assessment and plan (1) Acute biliary pancreatitis: Code(s): K85.10 - Biliary acute pancreatitis without necrosis or infection Status: Acute Assessment and Plan: consistent with gallstone pancreatitis, also had elevated liver enzymes, most likely already passed stone denies alcohol use or previous episode MRCP without stones in bile duct, also normal bili- no need of ercp will need interval cholecystectomy, timing by surgery already feeling better, ok to have CL diet as tolerated (2) Cholelithiasis: Code(s): K80.20 - Calculus of gallbladder without cholecystitis without obstruction Status: Acute (3) Upper abdominal pain: Code(s): R10.10 - Upper abdominal pain, unspecified Status: Acute Assessment and Plan: better (4) Elevated liver enzymes: Code(s): R74.8 - Abnormal levels of other serum enzymes Status: Acute Assessment and Plan: from gs pancreatitis covid negative GI Consult Note Consult date/time: 06/13/22 16:31 Reason for consult: elevated lft, GS pancreatitis HPI: Leigh Mendez is a 31 year old female who is 3 weeks post- (did not have complications during ) here with new onset of severe pain in upper abdomen with radiation to her back, also nausea. No fever, denies similar problem. Blood work revealed transaminases 100-150, normal bili, lipase 4000. She denies alcohol, never had pancreatitis. Ultrasound showed cholelithiasis. Pain better after tylenol, she is thirsty. MRCP reviewed and showed Acute interstitial pancreatitis, Cholelithiasis. No evidence of acute cholecystitis, No choledocholithiasis. Surgery on board. Review of Systems Constitutional: Constitutional: Denies chills and Reports lethargy Eyes: Eyes: Denies blurry vision ENT: Reports Normal hearing present and Denies neck pain Cardiovascular: Cardiovascular: Denies chest pain Respiratory: Respiratory: Denies cough Gastrointestinal: Gastrointestinal: Reports abdominal pain and Reports nausea Genitourinary: Genitourinary: Denies dysuria Musculoskeletal: Musculoskeletal: Denies neck pain Integumentary/Breasts: Skin/Breast: Denies dry skin Neurologic: Reports Normal hearing present, Denies headache(s) and Denies weakness Psychiatric: Psychiatric: Denies anxiety Endocrine: Endocrine: Denies change in body appearance Hematologic/Lymphatic: Hematologic/Lymphatic: Denies easy bleeding Allergic/Immunologic: Allergic/Immunologic: Denies urticaria [facility] Past Medical History Medical History (Updated 06/13/22 @ 16:36 by Mason Milligan MD) Anxiety Depression Elevated liver enzymes Migraines Morbid obesity Upper abdominal pain Family History Family History (Updated 06/13/22 @ 12:52 by Megan Jacob RN) Mother Diabetes mellitus Father Prediabetes Hypercholesterolemia Social History Social History Smoking status: Never smoker Second hand tobacco smoke exposure: No Alcohol intake: never Substance use: never Substance use type: does not use Lack of Transportation: No Lack of Food: Never True Current Housing: I Have Housing Concerned About Future Housing: No Difficulty Paying Gas/Electric Bills: No Difficulty Paying for Meds: No Currently Unemployed: No Education: Associate Degree Difficulty w/ Childcare or Family Care: No Living arrangements: with family Occupation/Education: occupation Gender identity (if verbalized by the patient): Female Sexual Orientation (if Verbalized by the Patient): Straight or Heterosexual Spiritual care concerns: No Meds Home Medications and Allergies Home Medications Medication Instructions Recorded Confirmed Type cholecalciferol (vitamin D3) 125 50,000 unit PO WEEKLY 04/23/22 06/13/22 History mcg (5,000 unit) tablet (Vitamin D3) vit no.95-ferrous
[2022-06-13] MEDS: PANTOPRAZOLE SODIUM IV 40 MG VIAL IV PUSH (18:16)
[2022-06-14] MEDS: SODIUM CHLORIDE 0.9% IV 1,000 ML 150 ML IV CONT (04:03)
[2022-06-14 04:49] LABS: Basophils Percent Auto 0.3 % (0.2-1.2); Eosinophils Absolute Auto 0.2 K/mm3 (0-0.3); Eosinophils Percent Auto 3.9 % (0-4.4); Hematocrit 36.3 % (37.0-47.0); Hemoglobin 11.3 g/dL (12.0-15.0); Immature Granulocyte Absolute 0.02 K/mm3 (0.00-0.031); Immature Granulocyte Percent A 0.3 % (0-0.5); Lymphocytes Absolute Auto 1.77 K/mm3 (0.9-3.2); Lymphocytes Percent Auto 29.8 % (18.3-44.2); Mean Corpuscular HGB Conc 31.1 g/dl (32-36); Mean Corpuscular Hemoglobin 27.5 pg (26-34); Mean Corpuscular Volume 88.3 fl (80-100); Mean Platelet Volume 9.1 fl (7.4-10.4); Monocytes Absolute Auto 0.4 K/mm3 (0.1-0.6); Monocytes Percent Auto 5.9 % (2.6-8.5); Neutrophils Absolute Auto 3.5 K/mm3 (1.3-6.7); Neutrophils Percent Auto 59.8 % (45.5-73.1); Platelet Count Result 226 k/mm3 (150-375); Red Blood Count 4.11 M/mm3 (4.2-5.4); Red Cell Distribution Width 12.3 % (11.5-14.5); White Blood Count 5.9 K/mm3 (4.5-10.0)
[2022-06-14 05:04] LABS: Alanine Aminotransferase 106 U/L (6-35); Albumin Level 3.3 g/dL (3.5-5.1); Alkaline Phosphatase 130 U/L (38-126); Anion Gap 3 mmol/L (8-16); Aspartate Amino Transferase 48 U/L (14-36); Bilirubin,Total 0.7 mg/dL (0.2-1.3); Blood Urea Nitrogen 7 mg/dL (7-17); Calcium 7.8 mg/dL (8.4-10.2); Carbon Dioxide 26 mmol/L (22-30); Chloride 107 mmol/L (98-107); Estimated CRCL calculation 116 ml/min; Estimated Glomerular Filt Rate > 60; Glucose 86 mg/dL (65-110); Lipase 166 U/L (23-300); Potassium 3.7 mmol/L (3.4-5.0); Sodium 136 mmol/L (137-145)
[2022-06-14 06:00] VITALS: BP 122/80; PULSE 77; RESP 20; TEMP 36.6; O2SAT 100
[2022-06-14] MEDS: PANTOPRAZOLE SODIUM IV 40 MG VIAL IV PUSH (08:14)
--- NOTE | 2022-06-14 11:47 | PM.PNGS ---
Progress Note: A&P Assessment and Plan (1) Acute biliary pancreatitis: Code(s): K85.10 - Biliary acute pancreatitis without necrosis or infection Status: Acute Assessment and Plan: resolved, MRCP and labs unremarkable, long d/w pt and re: interval cholecystectomy, she would like to eat and go home if claribel low fat diet, will bring her back for interval cholecystectomy as outpt Subjective Subjective Date/Time Seen: 06/14/22 11:47 feels better, no abd pain this am, claribel clears yest Review of Systems Review of Systems: All systems reviewed & are unremarkable except as noted in HPI and below Exam Const: General: cooperative, comfortable and no acute distress Resp: Auscultation: clear to auscultation bilaterally Cardio: Rate: regular rate Rhythm: regular rhythm GI: Inspection: normal to inspection and non-distended GI Palp: No abdominal tenderness, Yes Soft to palpation, No Tenderness to palpation present (GI), No Guarding due to palpation present (GI) and No Rigid due to palpation Objective Data Vital Signs Vital Signs: Vital Signs - 24 hr 06/13/22 12:00 06/13/22 13:29 06/13/22 19:48 Temperature 36.2 C L Pulse Rate 53 L Respiratory Rate 12 Blood Pressure 120/64 Pulse Oximetry 100 Oxygen Delivery Room Air Room Air 06/13/22 21:02 06/14/22 06:00 Temperature 36.4 C 36.6 C Pulse Rate 68 77 Respiratory Rate 20 20 Blood Pressure 101/59 L 122/80 Pulse Oximetry 99 100 Oxygen Delivery Intake/Output Intake/Output: Intake & Output 06/11/22 06/12/22 06/13/22 06/14/22 23:59 23:59 23:59 23:59 Intake Total 4200 1200 Output Total 500 400 Balance 3700 800 Meds/Results Medications: Active Medications Generic Name Dose Route Start Last Admin Trade Name Freq PRN Reason Stop Dose Admin Sodium Chloride 1,000 mls @ 150 mls/hr 06/13/22 10:20 06/14/22 04:03 Normal Saline Iv IV CONT 150 mls/hr .[id number] FARZANA Administration Acetaminophen 1,000 mg in 100 mls @ 400 mls/hr 06/13/22 17:54 06/13/22 18:30 Ofirmev 1,000 Mg Ivpb IVPB 06/14/22 17:53 Infused Q8HR PRN Infusion pain 1-6 Morphine Sulfate 4 mg 06/13/22 10:17 Morphine Sulfate (*Crx) 4 Mg/Ml Inj IV PUSH Q2H PRN Pain Rated 7-10 Ondansetron HCl 4 mg 06/13/22 10:17 Ondansetron Inj 4 Mg/2 Ml Vial IV PUSH Q4H PRN Nausea Pantoprazole Sodium 40 mg 06/13/22 17:45 06/14/22 08:14 Pantoprazole Sodium Iv 40 Mg Vial IV PUSH 40 mg QAM FARZANA Administration Radiology Results: ITS Impressions Chest X-Ray 06/13/22 07:25 IMPRESSION: 1: NO ACUTE CARDIOPULMONARY DISEASE. Abdomen Ultrasound 06/13/22 08:21 IMPRESSION: 1: Cholelithiasis. Abdomen/Pelvis CT 06/13/22 09:39 IMPRESSION: 1. No acute abdominal abnormality. 2: Splenomegaly. 3: Hepatic steatosis. MRCP 06/13/22 14:32 IMPRESSION: 1. Acute interstitial pancreatitis. 2. Cholelithiasis. No evidence of acute cholecystitis. 3. No choledocholithiasis. Labs Labs: Laboratory Results - last 24 hr 06/13/22 06/13/22 06/14/22 14:37 14:37 04:43 WBC 5.9 RBC 4.11 L Hgb 11.3 L Hct 36.3 L MCV 88.3 MCH 27.5 MCHC 31.1 L RDW 12.3 Plt Count 226 MPV 9.1 Immature Gran % (Auto) 0.3 Neut % (Auto) 59.8 Lymph % (Auto) 29.8 Burt % (Auto) 5.9 Eos % (Auto) 3.9 Baso % (Auto) 0.3 Lymph # (Auto) 1.77 Burt # (Auto) 0.4 Eos # (Auto) 0.2 Baso # (Auto) 0.0 Abs Immat Gran (auto) 0.02 Absolute Neuts (auto) 3.5 Absolute Nucleated RBC 0.0 Nucleated RBC % 0.0 Sodium 138 Cancelled Potassium 4.0 Cancelled Chloride 110 H Cancelled Carbon Dioxide 22 Cancelled Anion Gap 6 L Cancelled BUN 10 Cancelled Creatinine 0.60 L Cancelled Estim Creat Clear Calc 133 Cancelled Estimated GFR > 60 Cancelled Glucose 80 Cancelled Calcium 8.3 L Cancelled Total Bilirubin 0.8 Ca
--- NOTE | 2022-06-14 12:23 | PM.DS ---
DS: Admitting Diagnosis Discharge Date 06/14/22 Admitting Diagnosis abdominal pain DS: Discharge Diagnosis Discharge Diagnosis (1) Elevated liver enzymes: Code(s): R74.8 - Abnormal levels of other serum enzymes Status: Acute Assessment and Plan: Secondary to gallstone pancreatitis (2) Acute biliary pancreatitis: Code(s): K85.10 - Biliary acute pancreatitis without necrosis or infection Status: Acute Assessment and Plan: Already improving, likely had choledocholithiasis and has passed the stone now (3) Cholelithiasis: Code(s): K80.20 - Calculus of gallbladder without cholecystitis without obstruction Status: Acute Assessment and Plan: Appreciate general surgery consultation and GI consultation, likely will need cholecystectomy Plan DVT prophylaxis with SCDs GI prophylaxis with PPI Code status full code DS: Summary Hospital Course Hospital Course: 31-year-old female who is 3 weeks from a spontaneous vaginal delivery of a full-term baby without any complications is presenting with several attacks of abdominal pain.? She states over the last few days she has had intermittent episodes of severe sharp epigastric pain that has her doubling over.? She denies associated nausea, vomiting or diarrhea.? No fevers or chills.? No chest pain or shortness of breath.? It does not appear to be worse with certain positions.? Food seems to make it worse.? She did notice difficulty taking a deep breath secondary to abdominal pain but denied any wheezing or coughing.? Shortly after arrival to the ER, patient's symptoms resolved.? MRCP was performed that showed stones in the bile duct with interstitial pancreatitis but no choledocholithiasis.? General surgery was consulted and is planning cholecystectomy.? GI was consulted and recommended surgical intervention as opposed to ERCP as there was no choledocholithiasis.? Patient did have elevated LFTs and a lipase of 4000 that came down to 2000 shortly after and 166 the next day. Also symptoms resolved and the patient was discharged on a low-fat diet with close outpatient follow-up for interval cholecystectomy. Time Spent with Patient Time attestation: Total time spent providing and/or coordinating discharge services: Exam Narrative: General: No acute distress, alert and oriented per baseline HEENT: Atraumatic, normocephalic, mucous membranes moist CV: Regular rate and rhythm, S1, S2 Lungs: Clear to auscultation bilaterally, no rales or crackles noted, no wheezes, good air entry Abdomen: Soft, nontender, nondistended Extremities: Normal to inspection Skin: No rashes noted, no lesions or wounds seen Psych: Euthymic, normal affect DS: Data Data Completed and Pending Labs on day of discharge: Labs from last 24 hours 06/14/22 06/14/22 06/13/22 04:43 04:43 14:37 WBC 5.9 RBC 4.11 L Hgb 11.3 L Hct 36.3 L MCV 88.3 MCH 27.5 MCHC 31.1 L RDW 12.3 Plt Count 226 MPV 9.1 Immature Gran % (Auto) 0.3 Neut % (Auto) 59.8 Lymph % (Auto) 29.8 Mcleod % (Auto) 5.9 Eos % (Auto) 3.9 Baso % (Auto) 0.3 Lymph # (Auto) 1.77 Mcleod # (Auto) 0.4 Eos # (Auto) 0.2 Baso # (Auto) 0.0 Abs Immat Gran (auto) 0.02 Absolute Neuts (auto) 3.5 Absolute Nucleated RBC 0.0 Nucleated RBC % 0.0 Sodium 136 L Cancelled Potassium 3.7 Cancelled Chloride 107 Cancelled Carbon Dioxide 26 Cancelled Anion Gap 3 L Cancelled BUN 7 Cancelled Creatinine 0.70 Cancelled Estim Creat Clear Calc 116 Cancelled Estimated GFR > 60 Cancelled Glucose 86 Cancelled Calcium 7.8 L Cancelled Total Bilirubin 0.7 Cancelled AST 48 H Cancelled ALT 106 H Cancelled Alkaline Phosphatase 130 H Cancelled Troponin I Total Protein 6.0 L Cancelled Albumin 3.3 L Cancelled Lipase 166 Cancelled 06/13/22 14:37 WBC RBC Hgb Hct MCV MCH MCHC RD
== END 2022-06-14 14:50 | disposition home or self-care (01) ==
LOC: ANHED 10:29 → ANH2MED 11:29
PROVIDERS: Admitting Provider Student in an Organized Health Care Education/Training Program; Emergency Provider Emergency Medicine; PCP Family Medicine; Visit Provider Student in an Organized Health Care Education/Training Program
DX: K85.10 Biliary acute pancreatitis without necrosis or infection (principal); K80.20 Calculus of gallbladder without cholecystitis without obstruction; R74.8 Abnormal levels of other serum enzymes; R06.02 Shortness of breath; E66.01 Morbid (severe) obesity due to excess calories; Z68.41 Body mass index [BMI] 40.0-44.9, adult; Z20.822 Contact with and (suspected) exposure to COVID-19
CPT/HCPCS: 36415; 71045; 74177; 74183; 76376; 76705; 80053; 81003; 81025; 83690; 84484; 85025; 85610; 85730; 87636; 93005; 96361; 96365; 96366; 96375; 96376; 99285; A9577; C9113; G0378; J0131; J7030; Q9967

== ENCOUNTER 2022-06-22 00:27 | Day surgery (SDC) | payer BC, SELFPAY ==
[2022-06-15 15:33] VITALS: BMI 41.8
--- NOTE | 2022-06-15 15:40 | PC.NURSE ---
Report to the Outpatient Waiting Room, entrance under the green pavilion located off [facility], at time 0930 on date 06/22/22. Planned Procedure Time: 1130. Time changes happen often and if your time is changed the preop area will call you the afternoon before. - You and your visitor will be asked to self-screen and do not enter if you have any COVID symptoms. - Only one visitor is requested with a max of two and NO children visitors are allowed at this time. - The patient visitor may be requested to leave or wait in car when not with patient due to distancing restrictions. - A mask is optional within the hospital at this time. Patients may have clear liquids (water, carbonated beverages, clear teas, apple juice) until 3 hours prior to surgery with a maximum of 20 ounces. - No food from midnight until time of surgery Take the following medications with a SIP of water the morning of surgery: N/A DO NOT STOP ANY OF YOUR OTHER PRESCRIPTION MEDICATIONS PRIOR TO SURGERY EXCEPT THE FOLLOWING Medications to discontinue per physician: N/A Date to take last dose: N/A Please no make-up, nail sami, hairspray, perfume, deodorant, or body powder the day of surgery. No jewelry (including any body piercings) or valuables the day of surgery, leave them at home. Please take a shower or bath the night before, or the morning of, surgery with an antibacterial soap (HIBICLENS). Wear comfortable, loose fitting clothing. - Jewelry must be removed prior to entering the operating room. Rings and piercings that are not removed may be cut off. - The hospital will not accept responsibility for valuables. - Please leave all valuables, including medications, at home the day of surgery. If you are going home after surgery, a licensed sales route driver helper must drive you home. - NO public transportation without another adult if you receive anesthesia. - We recommend that an adult stay with you for 24 hours following discharge. - We also recommend that you do not drive, make important decision, drink alcoholic beverages, or take any drugs that were not prescribed by your health care provider for at least 24 hours after your discharge time. Follow any additional instructions given to you from your surgeon. If you or anyone in your household have experienced Covid symptoms in the past week, please notify your surgeon or the nurse liaison at the phone number below for possible testing. Telephone instructions given to PT - GER ROBB and asked if any additional questions and then verbalized understanding. Patient advised to call surgeon office or pre surgery nurse liaison [phone] if any additional questions.
[2022-06-22] VITALS (8 sets, daily range): BP systolic 103–117; BP diastolic 61–77; PULSE 50–79; RESP 15–20; TEMP 36.6; O2SAT 98–100
[2022-06-22] MEDS: ACETAMINOPHEN 500 MG TABLET 1000 MG PO (09:39)
[2022-06-22] MEDS: LACTATED RINGERS 1,000 ML 30 ML IV CONT ×2 (10:23→13:35)
[2022-06-22] MEDS: KETOROLAC 15 MG/ML VIAL (*BKC) IV PUSH (10:27)
[2022-06-22] MEDS: INDOCYANINE GREEN 25 MG VIAL 3.75 MG IV PUSH (10:27)
[2022-06-22 10:33] LABS: Amylase 48 U/L (30-110)
--- NOTE | 2022-06-22 11:26 | WPDHPUPDATE1 ---
History and Physical Update Update Date/Time: 06/22/22 11:26 History and Physical has been reviewed, including an updated exam of the patient. There are NO changes in the patient's condition. Risks, benefits, and alternatives have been discussed and questions answered. Patient agrees to proceed with procedure.
--- NOTE | 2022-06-22 11:31 | P.PNAN_ITS ---
Anes - Initial Pre Proc Eval Procedure: Operation Date: 06/22/22 11:30 Proposed Procedures p Robotic Assisted Cholecystectomy - Denia Polanco MD Date/Time: 06/22/22 11:31 Surgeon: Denia Polanco MD Pre Op Diagnosis: Cholecystitis with Choelithiasis Patient Data Age: 31 Gender: F Height: 1.57 m Weight: 104.6 kg Last Vital Signs Temp 36.6 C 06/22/22 10:09 Pulse 72 06/22/22 10:09 Resp 16 06/22/22 10:09 BP 104/68 06/22/22 10:09 Pulse Ox 99 06/22/22 10:09 O2 Del Method Room Air 06/22/22 10:09 Allergies Allergy/AdvReac Type Severity Reaction Status Date / Time No Known Allergies Allergy Verified 06/22/22 09:38 Home Medications Medication Instructions Recorded Confirmed Type No Home Medications 06/15/22 06/15/22 History Laboratory Tests 06/22/22 06/22/22 10:20 10:20 Amylase 48 U/L U/L (30-110) Blood Type A Positive Antibody Screen Pending Patient hx anesthesia problems: none Family hx anesthesia problems: none Results Review: All pre-operative results and documents have been reviewed as part of the pre-operative evaluation. [facility] Past Medical History Medical History Anxiety Depression Elevated liver enzymes Migraines Morbid obesity Upper abdominal pain Family History Family History Mother Diabetes mellitus Father Prediabetes Hypercholesterolemia Social History Social History Smoking status: Never smoker Second hand tobacco smoke exposure: No Alcohol intake: current Alcohol use details: VERY RARE Substance use: never Substance use type: does not use Lack of Transportation: No Lack of Food: Never True Current Housing: I Have Housing Concerned About Future Housing: No Difficulty Paying Gas/Electric Bills: No Difficulty Paying for Meds: No Currently Unemployed: No Education: Associate Degree Difficulty w/ Childcare or Family Care: No Living arrangements: with family Occupation/Education: occupation Gender identity (if verbalized by the patient): Female Sexual Orientation (if Verbalized by the Patient): Straight or Heterosexual Spiritual care concerns: No Anes - Eval Final PreProcedure Day of Procedure 06/22/22 11:31 Patient weight: morbidly obese Heart: regular rate and rhythm Lungs: clear to auscultation Airway: Mallampati scale class II Neurological: alert and oriented Last oral intake: >/= 8 hours ASA classification: III Emergent: no Anesthetic plan: proceed Anesthesia type and monitoring: general ETT and standard monitoring Results Review: All pre-operative results and documents have been reviewed as part of the pre- operative evaluation. Informed Consent: The patient's anesthetic plan and its attendant risks and benefits were discussed with the patient/family/POA. Questions were solicited and answers provided to the satisfaction of the patient/family/POA.
[2022-06-22] MEDS: ceFAZolin 2 GM/D5W 50 ML 2 GM/50 ML BAG IVPB (12:05)
[2022-06-22] MEDS: BUPIVACAINE/EPINEPHRINE 0.5% 10 ML VIAL 30 ML INFILTRATE (12:49)
--- NOTE | 2022-06-22 13:21 | P.OP_ITS ---
Procedure Note - Detailed Date of Procedure 06/22/22 Pre-op Diagnosis biliary pancreatitis, cholelithiasis Post-op Diagnosis Same Procedure Performed Robotic assisted cholecystectomy Surgeon Denia Polanco MD Anesthesia General Indications 31-year-old female presenting to the office status post conservative treatment of biliary pancreatitis. The patient also with noted cholelithiasis. Patient to be set up for interval cholecystectomy Findings moderate cholecystitis Description of Procedure The patient was taken to the operating room and placed in the supine position. After adequate induction of general anesthesia, the patient was prepped and draped in the normal sterile fashion. A time-out was then done to verify the patient's identity, as well as the procedure being performed. I began by making a 8 mm incision in the periumbilical region. A Veress needle was then placed in the peritoneal cavity and CO2 gas was insufflated. After adequate pneumoperitoneum was achieved, the Veress needle was removed and a 8 mm Optiview trocar was placed under direct visualization. Once into the abdominal cavity, the introducer was removed and the laparoscope was placed through this trocar site. Under direct visualization, I placed a further 8 mm port in the left mid abdomen and 2 additional 8 mm ports in the right mid abdomen. The robot was then docked to these ports sites. I then went to the console. The gallbladder was then identified and noted to be moderately inflamed. I was able to place a grasper at the dome of the gallbladder and this was retracted up and over the liver. A 2nd retractor was used to grasp the infundibulum and retracted laterally. This allowed visualization and dissection of the triangle of Calot. There were some omental adhesions to the gallbladder and these were taken down with the cautery. I then began dissection around the triangle Calot. I first identified the cystic duct, I was able to visualize the entirety of the duct from its proximal insertion into the gallbladder to its the distal junction with the common hepatic/common bile duct junction. I did use the firefly visualization at this point to confirm the anatomy. The proximal cystic duct was then further skeletonized, clipped, and transected. Next I visualized the cystic artery. Again the structure was skeletonized, clipped, and transected. I then again used firefly to confirm anatomy and no aberrant anatomy was noted. I then used the Bovie cautery to take down the peritoneal attachments of the gallbladder off the liver bed. Once the gallbladder specimen was completely detached, an Endo pouch was placed through the LLQ 8 mm port site and the gallbladder specimen was placed in the endo-pouch and subsequently removed. I then re-examined the right upper quadrant. Hemostasis was noted in the liver bed and the clips were noted to be in good position on both the duct and the artery. No other pathology was seen in the right upper quadrant. All instruments were then removed and the robot was undocked. The abdomen was then desufflated and all ports were removed. All port sites were then closed with 4- 0 Monocryl subcuticular suture. Dermabond was placed on each was wound. The patient tolerated the procedure well and was extubated in the operating room postop. The patient will now be transferred to the recovery room in stable condition. Estimated Blood Loss 5 Drains No Packing No Pathology Yes Complications No immediate complications Condition Stable Disposition PACU [facility] Billing Surgery - Charge Forward: Surgery Billing
[2022-06-22] MEDS: ONDANSETRON INJ 4 MG/2 ML VIAL IV PUSH (14:38)
[2022-06-22] MEDS: oxyCODONE HCL (*CRX) 5 MG TAB IR PO (15:00)
== END 2022-06-22 15:48 | disposition home or self-care (01) ==
PROVIDERS: PCP Family Medicine; Visit Provider Surgery
PROC: 0FT44ZZ Resection of Gallbladder, Percutaneous Endoscopic Approach (ICD-10-PCS; CPT 47562; principal; 2022-06-22 11:30)
DX: K80.10 Calculus of gallbladder with chronic cholecystitis without obstruction (principal); K85.10 Biliary acute pancreatitis without necrosis or infection; E66.01 Morbid (severe) obesity due to excess calories; Z68.41 Body mass index [BMI] 40.0-44.9, adult
CPT/HCPCS: 47562; 36415; 82150; 86850; 86900; 86901; 88304; A9270; J0690; J1100; J1170; J1885; J2250; J2405; J2704; J3010; J7120

== ENCOUNTER 2022-06-25 10:35 | Emergency (ER) | payer BC, SELFPAY ==
--- NOTE | ~2022-06-25 | CT_ITS ---
EXAMINATION: CT abdomen pelvis w con DATE: 06/25/2022 13:41 INDICATION: Abdominal pain. Back pain. TECHNIQUE: Computed tomography (CT) of the abdomen and pelvis was performed with 100 mL Omnipaque 350 intravenous contrast. Automated exposure control and iterative reconstruction technique were employe d. The dose-length product was 1125.86 mGy-cm. COMPARISON: CT abdomen and pelvis 06/13/2022 FINDINGS: The visualized portions of the lung bases demonstrate minimal atelectasis. No pleural effus ion. The heart size is normal. No pericardial effusion. The liver demonstrates a 3 mm cyst. There are changes of cholecystectomy. There is mild splenomegaly measuring 14.1 cm. The pancreas, adrenal glan ds, and kidneys are normal. There is an umbilical hernia containing fat. The bladder is distended. Th ere are no dilated loops of bowel. The appendix is normal. There are no pathologically enlarged lymph nodes. There is no free intraperitoneal fluid. There are chronic bilateral L5 pars defects. There is mild thoracolumbar spondylosis. IMPRESSION: 1. Mild splenomegaly. Reviewed, dictated and finalized at location A. ING INSPECTOR IMPRESSION: 1. Mild splenomegaly.
[2022-06-25 10:40] VITALS: BP 109/68; PULSE 76; RESP 16; TEMP 36.3; O2SAT 100
[2022-06-25 12:21] LABS: Basophils Percent Auto 0.3 % (0.2-1.2); Eosinophils Absolute Auto 0.2 K/mm3 (0-0.3); Eosinophils Percent Auto 2.3 % (0-4.4); Hematocrit 42.3 % (37.0-47.0); Hemoglobin 13.7 g/dL (12.0-15.0); Immature Granulocyte Absolute 0.03 K/mm3 (0.00-0.031); Immature Granulocyte Percent A 0.4 % (0-0.5); Lymphocytes Absolute Auto 1.91 K/mm3 (0.9-3.2); Lymphocytes Percent Auto 27.8 % (18.3-44.2); Mean Corpuscular HGB Conc 32.4 g/dl (32-36); Mean Corpuscular Volume 86.3 fl (80-100); Mean Platelet Volume 9.6 fl (7.4-10.4); Monocytes Absolute Auto 0.4 K/mm3 (0.1-0.6); Monocytes Percent Auto 6.3 % (2.6-8.5); Neutrophils Absolute Auto 4.3 K/mm3 (1.3-6.7); Neutrophils Percent Auto 62.9 % (45.5-73.1); Platelet Count Result 285 k/mm3 (150-375); Red Cell Distribution Width 12.7 % (11.5-14.5); White Blood Count 6.9 K/mm3 (4.5-10.0)
[2022-06-25 12:23] LABS: Appearance Urine Slightly Cloudy (Clear); Bilirubin Urine Negative (Negative); Blood Urine 3+ (Negative); Color Urine Yellow (Yellow); Glucose Urine UA Negative (Negative); Ketones Urine Negative (Negative); Leukocyte Esterase Ur Trace LEU/UL (Negative); Nitrate Urine Negative (Negative); Protein Urine Negative (Negative); Specific Grav Ur 1.015 (1.001-1.035); Urobilinogen Urine 0.2 mg/dL (<2.0); pH Urine 7.5 (5.0-9.0)
[2022-06-25 12:34] LABS: Alanine Aminotransferase 24 U/L (6-35); Albumin Level 4.4 g/dL (3.5-5.1); Alkaline Phosphatase 107 U/L (38-126); Anion Gap 4 mmol/L (8-16); Aspartate Amino Transferase 20 U/L (14-36); Bilirubin,Total 0.8 mg/dL (0.2-1.3); Blood Urea Nitrogen 12 mg/dL (7-17); Calcium 9.1 mg/dL (8.4-10.2); Carbon Dioxide 29 mmol/L (22-30); Chloride 101 mmol/L (98-107); Estimated CRCL calculation 116 ml/min; Estimated Glomerular Filt Rate > 60; Glucose 87 mg/dL (65-110); Lipase 51 U/L (23-300); Sodium 134 mmol/L (137-145)
[2022-06-25 12:34] LABS: Bacteria Urine Trace /hpf; RBC Urine >75 /hpf (0-2); Squamous Epithelial Cell Urine Moderate /hpf (Few)
[2022-06-25 12:36] LABS: Add Urine Microscopic? YES
--- NOTE | 2022-06-25 12:49 | ED.GENADULT ---
HPI - General Adult General Chief complaint: Back Pain/Injury Stated complaint: back pain, 3 days post op cholecysetectomy Time Seen by Provider: 06/25/22 12:46 Source: patient and family Limitations: no limitations History of Present Illness HPI narrative: Patient is status post vaginal delivery 4 weeks ago, cholecystectomy 3 days ago presents with lower back pain early this morning worse with certain movement, standing and walking better laying down still. She denies any fever, chills, nausea, vomiting, abdominal pain or radiation of pain. Related Data Allergies Allergy/AdvReac Type Severity Reaction Status Date / Time No Known Allergies Allergy Verified 06/25/22 11:39 Review of Systems Review of Systems: All systems reviewed & are unremarkable except as noted in HPI and below PMFSH Past Medical History Medical History Anxiety Depression Elevated liver enzymes Migraines Morbid obesity Upper abdominal pain Family History Family History Mother Diabetes mellitus Father Prediabetes Hypercholesterolemia Social History Social History Smoking status: Never smoker Second hand tobacco smoke exposure: No Alcohol intake: current Alcohol use details: VERY RARE Substance use: never Substance use type: does not use Lack of Transportation: No Lack of Food: Never True Current Housing: I Have Housing Concerned About Future Housing: No Difficulty Paying Gas/Electric Bills: No Difficulty Paying for Meds: No Currently Unemployed: No Education: Associate Degree Difficulty w/ Childcare or Family Care: No Living arrangements: with family Occupation/Education: occupation Gender identity (if verbalized by the patient): Female Sexual Orientation (if Verbalized by the Patient): Straight or Heterosexual Spiritual care concerns: No Exam Narrative: General appearance: Well-developed, well-nourished Skin: Normal color Head: Normocephalic, nontraumatic Eyes: Clear conjunctiva ENT: Oropharynx normal, ears normal, nose normal Neck: Supple, nontender Chest and respiratory: Airway patent, no respiratory distress, no accessory muscle use Heart: Regular rate/rhythm Abdomen: Soft, nontender, no organomegaly, quiet bowel sounds Vascular: Normal peripheral pulses, normal capillary refill. Musculoskeletal: Diffuse tenderness across lumbar spine, no bruises, no swelling or rash Neurologic: Alert and oriented ?3, TECHNICAL COORDINATOR is normal as tested, no gross motor deficit Course Vital Signs Vital signs: Vital Signs Temperature 36.3 C L 06/25/22 10:40 Pulse Rate 76 06/25/22 10:40 Respiratory Rate 16 06/25/22 10:40 Blood Pressure 109/68 06/25/22 10:40 Pulse Oximetry 100 06/25/22 10:40 Oxygen Delivery Room Air 06/25/22 10:40 Temperature 36.3 C L 06/25/22 10:40 Pulse Rate 62 06/25/22 15:08 Respiratory Rate 12 06/25/22 15:08 Blood Pressure 116/68 06/25/22 15:08 Pulse Oximetry 98 06/25/22 15:08 Oxygen Delivery Room Air 06/25/22 10:40 Medical Decision Making MDM Narrative Medical decision making narrative: Patient presents with lower back pain, denies any trauma. Patient laying down in bed for the last 4 weeks since she had the baby 4 weeks ago and s/p cholecystectomy 3 days ago, musculoskeletal pain is my concern. Physical examination showed diffuse tenderness with palpation at the lumbar area, no radiation of pain. Labs, UA, CT abdomen pelvis with IV contrast, IV fluids, IV Dilaudid ordered. Work-up showed no significan
[2022-06-25] MEDS: HYDROmorphone HCL INJ (*CRX) 1 MG/ML SYR 0.5 MG IV PUSH (13:02)
[2022-06-25] MEDS: ONDANSETRON INJ 4 MG/2 ML VIAL IV PUSH (13:02)
[2022-06-25] MEDS: SODIUM CHLORIDE 0.9% IV 1,000 ML 999 ML IV CONT (13:02)
[2022-06-25 13:26] VITALS: BP 113/62; PULSE 67; RESP 18; O2SAT 98
--- NOTE | 2022-06-25 13:27 | PC.NURSE ---
Pt to CT scan via stretcher, fluids infusing, at bedside.
[2022-06-25 15:08] VITALS: BP 116/68; PULSE 62; RESP 12; O2SAT 98
== END 2022-06-25 15:09 | disposition home or self-care (01) ==
PROVIDERS: Emergency Provider Emergency Medicine; PCP Family Medicine
DX: M54.50 Low back pain, unspecified (principal); F41.9 Anxiety disorder, unspecified; F32.9 Major depressive disorder, single episode, unspecified
CPT/HCPCS: 36415; 74177; 80053; 81001; 83690; 85025; 96361; 96374; 96375; 99284; J1170; J2405; J7030; Q9967

== ENCOUNTER 2023-10-12 17:26 | Emergency (ER) | payer BC, SELFPAY ==
--- NOTE | 2023-10-12 17:31 | ED.URI ---
HPI - URI/Sore Throat General Chief Complaint: Upper Respiratory Infection Stated Complaint: Earache,Jaw Pain, Sore Throat Time Seen by Provider: 10/12/23 17:31 Source: patient and RN notes reviewed Mode of arrival: ambulatory Limitations: no limitations History of Present Illness HPI Narrative: 33-year-old female presents with concern for postnasal drip, right ear pain and pressure, sore throat on the right that started yesterday. She denies fever, body aches, chills, sweats, nausea, rash. MD elicited complaint: sore throat Related Data Allergies Allergy/AdvReac Type Severity Reaction Status Date / Time No Known Allergies Allergy Verified 10/12/23 17:32 Review of Systems Review of Systems: CONSTITUTIONAL: Denies malaise, chills, sweats, or fever. EYES: Denies visual changes, redness, or discharge. ENT: Reports rhinorrhea, otalgia and sore throat. CARDIOVASCULAR: Denies chest pain, palpitations, or edema. RESPIRATORY: Denies cough. Denies dyspnea. GASTROINTESTINAL: Denies abdominal pain, nausea, vomiting, diarrhea SKIN: Denies rash or itching. MUSCULOSKELETAL: Denies myalgia. NEUROLOGIC: Denies headache. All systems reviewed & are unremarkable except as noted in HPI and below PMFSH Past Medical History Medical History (Updated 10/12/23 @ 17:50 by Karishma Allen NP) Anxiety Depression Elevated liver enzymes Migraines Morbid obesity Upper abdominal pain Surgical History Surgical History (Updated 07/07/22 @ 10:14 by Rochelle Barba) History of cholecystectomy robotic assisted cholecystectomy 06/22/22 Family History Family History Mother Diabetes mellitus Father Prediabetes Hypercholesterolemia Social History Social History Smoking status: Never smoker Second hand tobacco smoke exposure: No Alcohol intake: current Alcohol use details: VERY RARE Substance use: never Substance use type: does not use Lack of Transportation: No Lack of Food: Never True Current Housing: I Have Housing Concerned About Future Housing: No Difficulty Paying Gas/Electric Bills: No Difficulty Paying for Meds: No Currently Unemployed: No Education: Associate Degree Difficulty w/ Childcare or Family Care: No Living arrangements: with family Occupation/Education: occupation Gender identity (if verbalized by the patient): Female Sexual Orientation (if Verbalized by the Patient): Straight or Heterosexual Spiritual care concerns: No Comments At time of signature, agree with nursing past medical, surgical, social and family history. There is no relevant family history pertinent to the presenting complaint Exam Narrative: GENERAL: Well-appearing, well-nourished, and in no acute distress. HEAD: Normocephalic EYES: PERRLA, conjunctivae clear ENT: Nares clear, turbinates edematous and erythematous, clear discharge. Mucous membranes moist. TM pearly medellin with dull light reflex bilaterally; no tragal tenderness. Oropharynx erythematous without lesions. Right-sided Tonsils enlarged and without exudate, no drooling, no hoarseness, no trismus, uvula midline. NECK: Supple. No lymphadenopathy CHEST: Clear to auscultation, breath sounds equal. No wheezing, rhonchi, rales, or stridor. No respiratory distress, speaks in full sentences. HEART: Regular rate and rhythm. No murmur heard. SKIN: Warm, dry, no rash. NEURO: Alert and oriented x3. PSYCH: Normal mood and affect Course Course Emergency Course: Patient is aware of diagnosis, understands and agrees to treatment plan. Anticipatory guidance given. Patient agrees to follow-up as directed and is aware of reasons to seek care at the emergency department. Portions of this record may have been created with voice recognition software Level of Care: Express Care Visit Vital Signs Vital signs: Reviewed. MDM - URI/Sore Throat MDM
[2023-10-12 17:34] VITALS: BP 148/76; PULSE 103; RESP 16; TEMP 37; O2SAT 99
[2023-10-12 17:41] VITALS: BP 148/76; PULSE 103; RESP 16; TEMP 37; O2SAT 99
== END 2023-10-12 18:05 | disposition home or self-care (01) ==
PROVIDERS: Emergency Provider Nurse Practitioner; PCP Family Medicine
DX: J02.0 Streptococcal pharyngitis (principal); E66.01 Morbid (severe) obesity due to excess calories; Z68.41 Body mass index [BMI] 40.0-44.9, adult
CPT/HCPCS: 87880; 99213; G0463

== ENCOUNTER 2024-09-11 08:19 | Emergency (ER) | payer BC, SELFPAY ==
[2024-09-11 08:28] VITALS: BP 121/63; PULSE 108; RESP 16; TEMP 36.4; O2SAT 100
--- NOTE | 2024-09-11 08:30 | ED_ITS ---
HPI - URI/Sore Throat General Chief Complaint: Ear Stated Complaint: right side ear/throat pain,achy, temp changes Time Seen by Provider: 09/11/24 08:39 Source: patient and RN notes reviewed Mode of arrival: ambulatory Limitations: no limitations History of Present Illness HPI Narrative: 33-year-old female presents concern for right ear pain that radiates to the throat. She denies nasal congestion or rhinorrhea. She reports body aches. Denies fever. She works in a kindergarten. MD elicited complaint: sore throat Related Data Allergies Allergy/AdvReac Type Severity Reaction Status Date / Time No Known Allergies Allergy Verified 09/11/24 08:31 Review of Systems Review of Systems: CONSTITUTIONAL: Denies malaise, chills, sweats, or fever. EYES: Denies visual changes, redness, or discharge. ENT: Denies rhinorrhea, congestion, sinus pain. Reports otalgia and sore throat. CARDIOVASCULAR: Denies chest pain, palpitations, or edema. RESPIRATORY: Denies cough. Denies dyspnea. GASTROINTESTINAL: Denies abdominal pain, nausea, vomiting, diarrhea SKIN: Denies rash or itching. MUSCULOSKELETAL: Reports myalgia. NEUROLOGIC: Denies headache. All systems reviewed & are unremarkable except as noted in HPI and below PMFSH Past Medical History Medical History Elevated liver enzymes Upper abdominal pain Depression Anxiety Migraines Morbid obesity Surgical History Surgical History History of cholecystectomy robotic assisted cholecystectomy 06/22/22 Family History Family History Mother Diabetes mellitus Father Prediabetes Hypercholesterolemia Social History Social History (Updated 08/23/24 @ 13:02 by Kim Wolff) Social History: Smoking status: Never smoker Second hand tobacco smoke exposure: No Alcohol intake: current Alcohol use details: VERY RARE Substance use: never Substance use type: does not use Do You Feel Safe in your Home?: Yes Lack of Transportation: No Lack of Food: Never True Current Housing: I Have Housing Concerned About Future Housing: No Difficulty Paying Gas/Electric Bills: No Difficulty Paying for Meds: No Currently Unemployed: No Education: Associate Degree Difficulty w/ Childcare or Family Care: No Living arrangements: with family Occupation/Education: occupation Gender identity (if verbalized by the patient): Female Sexual Orientation (if Verbalized by the Patient): Straight or Heterosexual Spiritual care concerns: No Comments At time of signature, agree with nursing past medical, surgical, social and family history. There is no relevant family history pertinent to the presenting complaint Exam Narrative: GENERAL: Well-appearing, well-nourished, and in no acute distress. HEAD: Normocephalic EYES: PERRLA, conjunctivae clear ENT: Nares clear. Mucous membranes moist. TM pearly medellin with sharp light reflex bilaterally; no tragal tenderness. Oropharynx erythematous without lesions. Tonsils not enlarged and without exudate, no drooling, no hoarseness, no trismus, uvula midline. NECK: Supple. No lymphadenopathy CHEST: Clear to auscultation, breath sounds equal. No wheezing, rhonchi, rales, or stridor. No respiratory distress, speaks in full sentences. HEART: Regular rate and rhythm. No murmur heard. SKIN: Warm, dry, no rash. NEURO: Alert and oriented x3. PSYCH: Normal mood and affect Course Course Emergency Course: Patient is aware of diagnosis, understands and agrees to treatment plan. Anticipatory guidance given. Patient agrees to follow-up as directed and is aware of reasons to seek care at the emergency department. Portions of this record may have been created with voice recognition software Level of Care: Express Care Visit Vital Signs Vital signs: Vital Signs Temperature 97.6 F 09/11/24 08:28 Pulse Rate 108 H 09/11/24 08:28 Respiratory Rate 16 09/11/24 08:28 Blood Pressure 121/63 09/11/24 08:28 Pulse Oximetry 100 09/11/24 08:28 Oxygen Delivery Room Air 09/11/24 08:28 Temperature 97.6 F 09/11/24 08:28 Pulse Rate 108 H 09/11/24 08:28 Respiratory Rate 16 09/11/24 08:28 Blood Pressure 121/63 09/11/24 08:28 Pulse Oximetry 100 09/11/24 08:28 Oxygen Delivery Room Air 09/11/24 08:28 Reviewed. MDM - URI/Sore Throat MDM Narrative Medical decision making narrative: Differential diagnosis considered: Lopes virus, strep pharyngitis, allergic rhinitis, upper respiratory tract infection, sinusitis, rhinosinusitis, nasopharyngitis. viral pharyngitis, otitis media, otitis externa, pneumonia, br onchitis, viral cough syndrome, viral syndrome, and influenza. Exam findings show no acute concerns or changes; patient is non-toxic appearing and is in no distress. Patient is appropriate for outpatient treatment and follow-up. Lab Data Attestation: I reviewed the patient's lab results. Critical Care Time Critical Care Time Critical Care Time: No Discharge Plan Discharge Clinical Impression: Acute streptococcal pharyngitis Patient Disposition: Home Condition: Stable Instructions: Antibiotic Form, Strep Throat (ED) Additional Instructions: -Take the medication as prescribed. Throw away the toothbrush after 24hours of antibiotic. -Eat and drink things that are easy to swallow, like tea or soup, or popsicles to suck on. -Oral rinses such as: Salt water gargles and/or may use topical anesthetic (eg. Chloraseptic spray) or lozenges to relieve dryness or throat pain). -Take Tylenol and ibuprofen as needed for pain and fever as directed. -Frequent hand washing or hand customer solutions teammate is one of the best ways to prevent spread of infection. -Follow up with primary care provider in 2-3 days if condition is not improving; or seek ER visit if you have trouble breathing, cannot drink enough fluids, have muffled voice, difficulty opening your mouth, or severe swelling. Patient Language: Czech Prescriptions: New penicillin V potassium 500 mg tablet 500 mg PO Q12H 10 Days Qty: 20 0RF Follow-up/Referrals: Monroe Sarmiento MD [Primary Care Provider] - Stand Alone Forms: Work/School Release IP Time of Disposition: 08:48
[2024-09-11 08:48] LABS: EDSTREPNEGPOS1 Positive (Negative)
== END 2024-09-11 08:50 | disposition home or self-care (01) ==
PROVIDERS: Emergency Provider Nurse Practitioner; PCP Family Medicine
DX: J02.0 Streptococcal pharyngitis (principal); E66.01 Morbid (severe) obesity due to excess calories; Z68.41 Body mass index [BMI] 40.0-44.9, adult
CPT/HCPCS: 87880; 99213; G0463

== ENCOUNTER 2024-12-11 07:39 | Outpatient (RCR) | payer BC, SELFPAY ==
[2024-11-28 12:45] VITALS: BMI 40.5
== END 2025-01-08 10:44 | disposition home or self-care (01) ==
LOC: ANHWOC 07:39
PROVIDERS: PCP Family Medicine; Visit Provider Physician Assistant
DX: T24.032A Burn of unspecified degree of left lower leg, initial encounter (principal)
CPT/HCPCS: 99212; 99214; A9270; G0463